=== PATIENT | female | born 1960 ===

== ENCOUNTER 2022-06-12 23:31 | Emergency (ER) | payer SELFPAY ==
[2022-06-12] MEDS ORDERED: Ondansetron 4 MG/2 ML SDV IVPUSH ONE (23:35)
[2022-06-12] MEDS ORDERED: Morphine 4 MG/ML Syringe IVPUSH ONE (23:35)
== END 2022-06-13 02:36 | disposition home or self-care (01) ==
LOC: MW.ED 23:31
DX: S42.215A Unspecified nondisplaced fracture of surgical neck of left humerus, initial encounter for closed fracture (principal); M54.2 Cervicalgia; W01.0XXA Fall on same level from slipping, tripping and stumbling without subsequent striking against object, initial encounter
CPT/HCPCS: 70450; 72125; 73030; 96374; 96375; 99284; J2270; J2405